=== PATIENT | female | born 1950 | race Caucasian/White ===

== ENCOUNTER → 2017-09-15 | Outpatient (CLI) | payer MEDICARE, BC ==
[~2017-09-15] MED LIST: ATIVAN 0.50.5 MG/TAB PO; CALCIUM1 CAP PO; CARDI-OMEGA1000 MG PO; DUO-KAPS1 CAP PO; FERROUS SU325 MG/TAB PO; FOLIC ACID PO; MELOXICAM PO; PREDNISONE20 MG PO; VITAMIN C500 MG PO; ZITHROMAX 250M250 MG PO
== END ==
LOC: MC.RAD 13:15
DX: Z12.31 Encounter for screening mammogram for malignant neoplasm of breast (principal); N64.89 Other specified disorders of breast

== ENCOUNTER → 2017-09-29 | Outpatient (CLI) | payer MEDICARE, BC | LOC: MC.RAD 12:37 | DX: N64.89 Other specified disorders of breast (principal); Z98.890 Other specified postprocedural states ==

== ENCOUNTER 2017-10-14 14:43 | Emergency (ER) | payer MEDICARE, BC ==
[2009-05-06 08:41] VITALS: BP 138/87
[~2017-10-14] VITALS: Ht 157.5 cm; Wt 56.8 kg
[2017-10-14 14:46] VITALS: BP 182/80; TEMP 99.3
[2017-10-14] MEDS ORDERED: CHOLESTEROL MED (15:09)
[2017-10-14 15:25] LABS: VENOUS BLOOD GAS BE 3.3 (-4-4); VENOUS BLOOD GAS SAO2 75.6 % (60-80)
[2017-10-14 15:26] LABS: VENOUS BLOOD GAS SITE VENIPUNCTURE
[2017-10-14 15:47] LABS: BASO % 0.2 % (0.0-2.0); EOS # 0.1 (0.0-0.7); EOS % 0.4 % (0-4.0); HEMATOCRIT 40.7 % (37.0-47.0); HEMOGLOBIN 13.8 g/dl (12.5-16.0); LYMPH # 1.6 (1.2-3.4); LYMPH % 12.2 % (20.0-51.0); MEAN CELL VOLUME 85 fl (80.0-100.0); MEAN CORPUSCULAR HEMOGLOBIN 29 pg (27.0-31.0); MEAN CORPUSCULAR HGB CONC 34 g/dl (33.0-37.0); MEAN PLATELET VOLUME 10.7 fl (7.4-10.4); MONO # 0.7 (0.1-0.6); PLATELET COUNT 271 K/mm3 (130-400); WHITE BLOOD COUNT 13.4 K/mm3 (4.8-10.8)
[2017-10-14 15:58] LABS: ADJUSTED CALCIUM 9.3 mg/dL (8.4-10.2); ALANINE AMINOTRANSFERASE 33 U/L (9-52); ALBUMIN 5.1 gm/dL (3.5-5.0); ALKALINE PHOSPHATASE 99 U/L (50-136); ANION GAP 13 mmol/L (7-16); BILIRUBIN,TOTAL 1.1 mg/dL (0.0-1.0); BLOOD UREA NITROGEN 15 mg/dL (7-17); CALCIUM 10.2 mg/dL (8.4-10.2); CARBON DIOXIDE 21 mmol/L (22-30); CHLORIDE 101 mmol/L (98-107); CREATININE, serum 0.72 mg/dL (0.52-1.25); GLUCOSE 116 mg/dL (74-106); POTASSIUM 3.5 mmol/L (3.4-5.0); SODIUM 135 mmol/L (137-145); TOTAL PROTEIN 8.2 gm/dL (6.4-8.2)
[2017-10-14 16:00] LABS: INFLUENZA A NEGATIVE; INFLUENZA B NEGATIVE
[2017-10-14 16:06] LABS: C-REACTIVE PROTEIN < 0.5 mg/dL (0.0-0.9)
[2017-10-14] MEDS ORDERED: ATIVAN 1MG T1 MG/TAB PO (17:35)
[2017-10-14] MEDS ORDERED: PREDNISONE20 MG PO (17:35)
[2017-10-14 17:47] VITALS: PULSE 90
[2017-10-14] MEDS ORDERED: ALBUTEROL0.83 MG/ML IH (18:00)
== END 2017-10-14 18:00 | disposition home or self-care (01) ==
LOC: COL.ER 14:43
PROVIDERS: Family Medicine
DX: J38.3 Other diseases of vocal cords (principal); J06.9 Acute upper respiratory infection, unspecified; F41.9 Anxiety disorder, unspecified
CPT/HCPCS: J1100; J2060

== ENCOUNTER 2017-11-17 10:45 | Outpatient (RCR) | payer MEDICARE, BC ==
[~2017-11-17 10:45] MED LIST changes: +ALBUTEROL0.83 MG/ML IH; +ATIVAN 1MG T1 MG/TAB PO; +CHOLESTEROL MED
== END 2018-01-31 | disposition home or self-care (01) ==
LOC: WSST
DX: J38.3 Other diseases of vocal cords (principal); F41.9 Anxiety disorder, unspecified
CPT/HCPCS: G9174-GN; G9175-GN

== ENCOUNTER → 2018-08-11 | Outpatient (CLI) | payer MEDICARE, BC | LOC: COL.LAB 11:07 | DX: Z01.812 Encounter for preprocedural laboratory examination (principal) ==

== ENCOUNTER 2018-08-24 08:11 | Day surgery (SDC) | payer MEDICARE, BC ==
[2009-05-06 08:41] VITALS: BP 138/87
[~2018-08-24] VITALS: Ht 157.6 cm; Wt 58.9 kg
[2018-08-24] VITALS (12 sets, daily range): BP systolic 135–173; BP diastolic 70–89; PULSE 63–75; TEMP 97.5
[2018-08-24 09:01] LABS: HEMATOCRIT 39.5 % (37.0-47.0); HEMOGLOBIN 12.9 g/dl (12.5-16.0); MEAN CELL VOLUME 86 fl (80.0-100.0); MEAN CORPUSCULAR HEMOGLOBIN 28 pg (27.0-31.0); MEAN CORPUSCULAR HGB CONC 33 g/dl (33.0-37.0); MEAN PLATELET VOLUME 10.3 fl (7.4-10.4); PLATELET COUNT 260 K/mm3 (130-400); RED BLOOD COUNT 4.61 M/mm3 (4.10-5.30); REDCELL DISTRIBUTION WIDTH-CV 13.9 % (11.5-14.5)
[2018-08-24] MEDS ORDERED: PROAIR HFA0.09 MG/AC IH (09:03)
[2018-08-24] MEDS ORDERED: LIPITOR 10MG10 MG PO (09:04)
[2018-08-24 09:06] LABS: PROTHROMBIN TIME 11.2 SECONDS (9.7-12.8)
[2018-08-24] MEDS ORDERED: BENADRYL25 M2 PO (09:06)
[2018-08-24] MEDS ORDERED: FERROUSAL325 MG PO (09:07)
[2018-08-24] MEDS ORDERED: FOLIC ACID 11 MG/TA1 PO (09:08)
[2018-08-24] MEDS ORDERED: CLARITIN 1010 MG/TAB PO (09:09)
[2018-08-24 09:11] LABS: CALCIUM 9.5 mg/dL (8.4-10.2); CREATININE, serum 0.69 mg/dL (0.52-1.25); POTASSIUM 4.3 mmol/L (3.4-5.0)
[2018-08-24] MEDS ORDERED: PRIL40 PO (09:13)
[2018-08-24] MEDS ORDERED: VITAMIN C500 MG PO (09:15)
== END 2018-08-24 16:00 | disposition home or self-care (01) ==
LOC: COL.CAR 08:11
PROVIDERS: Internal Medicine Cardiovascular Disease
DX: R06.09 Other forms of dyspnea (principal); R94.39 Abnormal result of other cardiovascular function study; R53.83 Other fatigue; E78.5 Hyperlipidemia, unspecified; G47.00 Insomnia, unspecified; M17.9 Osteoarthritis of knee, unspecified; M85.80 Other specified disorders of bone density and structure, unspecified site; Z96.641 Presence of right artificial hip joint; Z79.51 Long term (current) use of inhaled steroids; Z83.3 Family history of diabetes mellitus; Z82.49 Family history of ischemic heart disease and other diseases of the circulatory system; Z80.42 Family history of malignant neoplasm of prostate
CPT/HCPCS: C1760; C1894; J1644; J2250; J3010; Q9967

== ENCOUNTER → 2019-05-25 | Outpatient (CLI) | payer MEDICARE, BC ==
[~2019-05-25] MED LIST changes: +BENADRYL25 M2 PO; +CLARITIN 1010 MG/TAB PO; +FERROUSAL325 MG PO; +FOLIC ACID 11 MG/TA1 PO; +LIPITOR 10MG10 MG PO; +NORCO 325 MG-7.1 TAB PO; +PRIL40 PO; +PROAIR HFA0.09 MG/AC IH; +ROXICODONE 55 MG/TAB PO; +XARELTO10 MG PO
== END ==
LOC: MC.RAD 10:03
DX: Z12.31 Encounter for screening mammogram for malignant neoplasm of breast (principal); N64.89 Other specified disorders of breast; Z98.890 Other specified postprocedural states

== ENCOUNTER → 2019-06-01 | Outpatient (CLI) | payer MEDICARE, BC | LOC: MC.RAD 10:04 | DX: R92.8 Other abnormal and inconclusive findings on diagnostic imaging of breast (principal) ==

== ENCOUNTER 2019-12-22 16:40 | Emergency (ER) | payer MEDICARE, BC ==
[2009-05-06 08:41] VITALS: BP 138/87
[~2019-12-22] VITALS: Ht 157.5 cm; Wt 59.1 kg
[2019-12-22 16:49] VITALS: TEMP 98.1
[2019-12-22] MEDS ORDERED: PRIL40 PO (17:31)
[2019-12-22 18:07] LABS: STREP SCREEN NEGATIVE
[2019-12-22 18:13] LABS: TROPONIN-I 0.014 ng/mL (0.000-0.035)
[2019-12-22 18:34] LABS: BASO % 0.3 % (0.0-2.0); EOS % 0.1 % (0-4.0); GRAN # 7.2 (1.4-6.5); GRAN % 81.2 % (42.2-75.2); HEMATOCRIT 40.5 % (37.0-47.0); HEMOGLOBIN 13.1 g/dl (12.5-16.0); LYMPH # 0.9 (1.2-3.4); LYMPH % 9.7 % (20.0-51.0); MEAN CELL VOLUME 84 fl (80.0-100.0); MEAN CORPUSCULAR HEMOGLOBIN 27 pg (27.0-31.0); MEAN CORPUSCULAR HGB CONC 32 g/dl (33.0-37.0); MONO # 0.8 (0.1-0.6); MONO % 8.4 % (1.7-9.3); PLATELET COUNT 248 K/mm3 (130-400); RED BLOOD COUNT 4.85 M/mm3 (4.10-5.30); REDCELL DISTRIBUTION WIDTH-CV 13.6 % (11.5-14.5)
[2019-12-22 18:43] LABS: CALCIUM 9.6 mg/dL (8.4-10.2); CREATININE, serum 0.74 (0.52-1.25); POTASSIUM 3.9 mmol/L (3.4-5.0); TOTAL PROTEIN 8.2 gm/dL (6.4-8.2)
[2019-12-22] MEDS ORDERED: ATIVAN 0.50.5 MG/TAB PO (20:20)
[2019-12-22 21:00] VITALS: BP 158/87; PULSE 82
== END 2019-12-22 21:00 | disposition home or self-care (01) ==
LOC: COL.ER 16:40
PROVIDERS: Emergency Medicine
DX: F41.9 Anxiety disorder, unspecified (principal)
CPT/HCPCS: J7030; J8540; Q9967

== ENCOUNTER → 2019-12-31 | Outpatient (CLI) | payer MEDICARE, BC | LOC: MC.RAD 08:58 | DX: R92.8 Other abnormal and inconclusive findings on diagnostic imaging of breast (principal) | CPT/HCPCS: G0279 ==

== ENCOUNTER → 2020-01-11 | Outpatient (CLI) | payer MEDICARE, BC | LOC: COL.LAB 09:02 | DX: J38.3 Other diseases of vocal cords (principal) ==

== ENCOUNTER 2020-02-04 10:15 | Outpatient (RCR) | payer MEDICARE, BC | END 2020-04-16 | disposition home or self-care (01) | LOC: WSST | DX: J38.3 Other diseases of vocal cords (principal) ==

== ENCOUNTER → 2020-06-10 | Outpatient (CLI) | payer MEDICARE, BC | LOC: MC.RAD 09:45 | DX: Z12.31 Encounter for screening mammogram for malignant neoplasm of breast (principal); Z98.890 Other specified postprocedural states ==

== ENCOUNTER 2020-08-05 12:49 | Emergency (ER) | payer MEDICARE, BC ==
[2009-05-06 08:41] VITALS: BP 138/87
[~2020-08-05] VITALS: Ht 157.5 cm; Wt 59.1 kg
[2020-08-05 13:22] VITALS: TEMP 98.3
[2020-08-05] MEDS ORDERED: CLARITIN 1010 MG/TAB PO (14:02)
[2020-08-05] MEDS ORDERED: FLONASE NASAL S16 GM (14:03)
[2020-08-05] MEDS ORDERED: OMEGA-3 1000 MG1 CAP PO (14:03)
[2020-08-05] MEDS ORDERED: CALCIUM CARBON650 M2 (14:03)
[2020-08-05] MEDS ORDERED: VTAMINC250TA (14:03)
[2020-08-05] MEDS ORDERED: FOSAMAX5 MG PO (14:04)
[2020-08-05 14:42] VITALS: BP 171/98; PULSE 78
== END 2020-08-05 14:35 | disposition home or self-care (01) ==
LOC: COL.ER 12:49
DX: Z20.828 Contact with and (suspected) exposure to other viral communicable diseases (principal); K21.9 Gastro-esophageal reflux disease without esophagitis; F41.9 Anxiety disorder, unspecified

== ENCOUNTER 2021-01-23 13:56 | Emergency (ER) | payer MEDICARE, BC ==
[2009-05-06 08:41] VITALS: BP 138/87
[~2021-01-23] VITALS: Ht 157.5 cm; Wt 59.1 kg
[~2021-01-23 13:56] MED LIST changes: +CALCIUM CARBON650 M2; +FLONASE NASAL S16 GM; +FOSAMAX5 MG PO; +OMEGA-3 1000 MG1 CAP PO; +VTAMINC250TA
[2021-01-23 14:09] VITALS: TEMP 98.2
[2021-01-23 16:00] VITALS: BP 148/96; PULSE 89
== END 2021-01-23 16:00 | disposition home or self-care (01) ==
LOC: COL.ER 13:56
DX: F41.9 Anxiety disorder, unspecified (principal); J06.9 Acute upper respiratory infection, unspecified; J38.3 Other diseases of vocal cords; Z20.822 Contact with and (suspected) exposure to COVID-19

== ENCOUNTER → 2023-10-31 | Outpatient (CLI) | payer MEDICARE, BC ==
[~2023-10-31] MED LIST changes: +CALCIUM 600 PLU1 TAB PO; -CALCIUM CARBON650 M2; +FOSAMAX 70MG TA70 MG PO; +IRON BISGLYCINA28 MG PO; +MULTIPLE VITAMI1 TA5 PO; +NORCO 325 MG-51 TAB PO; +PRESERVISION1 SGL PO; +TOPROL XL 25MG25 MG; +VITAMIN B COMPL1 T16 PO; +ZYRTEC 10MG10 MG PO
== END ==
LOC: COL.PUL 09:17 → COL.CARD 10:30 → COL.PUL 10:30
DX: R06.02 Shortness of breath (principal)
CPT/HCPCS: J7674

== ENCOUNTER 2023-11-23 07:01 | Outpatient (CLI) | payer MEDICARE ==
[2006-01-07 17:22] VITALS: TEMP 100.4
[~2023-11-23] VITALS: Ht 154.9 cm; Wt 56.3 kg
[2023-11-23] VITALS (15 sets, daily range): BP systolic 113–158; BP diastolic 59–80; PULSE 60–75; TEMP 99.3
[~2023-11-23 07:01] MED LIST changes: -PRESERVISION1 SGL PO; -ZYRTEC 10MG10 MG PO
[2023-11-23] MEDS ORDERED: PROAIR HFA0.09 MG/AC IH (07:32)
[2023-11-23] MEDS ORDERED: ZYRTEC 10MG10 MG PO (07:34)
[2023-11-23] MEDS ORDERED: PRESERVISION1 SGL PO (07:35)
[2023-11-23] MEDS ORDERED: fentaNYL 50 MCG/ML 2 ML VIAL IV SCH (08:44)
--- NOTE | 2023-11-23 12:26 | NUR ---
pt tolerated recovery period well. vs remained within normal limits and pt was assisted to main lobby via wheelchair upon discharge. IV discontinued and pt verbalized understanding of discharge instructions. left chest dressing remained clean dry and intact. pt free from acute concerns and complaints upon discharge.
== END 2023-11-23 11:45 | disposition home or self-care (01) ==
LOC: COL.RAD 07:01
DX: R91.1 Solitary pulmonary nodule (principal); R93.89 Abnormal findings on diagnostic imaging of other specified body structures
CPT/HCPCS: J3010